=== PATIENT | male | born 1980 | race African-American/Black ===

== ENCOUNTER 2017-06-11 21:10 | Emergency (ER) | payer OTHER ==
--- NOTE | 2017-06-11 21:13 | EDM.PDOC ---
ED HPI GENERAL MEDICAL PROBLEM - General Stated Complaint: MEDICAL CLEARANCE Time Seen by Provider: 06/11/17 21:12 Source of Information: Reports: Patient History Limitations: Reports: No Limitations - History of Present Illness INITIAL COMMENTS - FREE TEXT/NARRATIVE: HISTORY AND PHYSICAL: History of present illness: Patient is a 37-year-old male who presents to the emergency room today with law enforcement for medical clearance. Patient was concerned that his blood pressure may be high and wanted to be evaluated. He states he has not taken his home medications for hypertension over the past week, due to noncompliance. He states he has no current symptoms or complaints. He denies any fever, chills, chest pain, shortness of breath or cough. He denies any headache, change in vision or weakness. Denies any abdominal pain, nausea, vomiting, diarrhea or constipation. Denies any alcohol or drug abuse. Review of systems: As per history of present illness and below otherwise all systems reviewed and negative. Past medical history: As per history of present illness and as reviewed below otherwise noncontributory. Surgical history: As per history of present illness and as reviewed below otherwise noncontributory. Social history: No reported history of drug or alcohol abuse. Family history: As per history of present illness and as reviewed below otherwise noncontributory. Physical exam: General: well-developed and well-nourished 37-year-old -[place] male. Alert and oriented. Nontoxic appearing and in no acute distress. HEENT: Atraumatic, normocephalic, pupils equal and reactive bilaterally, negative for conjunctival pallor or scleral icterus, mucous membranes moist, throat clear, neck supple, nontender, trachea midline. No drooling or trismus noted. No meningeal signs Lungs: Clear to auscultation, breath sounds equal bilaterally, chest nontender. Heart: S1S2, regular rate and rhythm without overt murmur Abdomen: Soft, nondistended, nontender. Negative for masses or hepatosplenomegaly. Negative for costovertebral tenderness. Pelvis: Stable nontender. Genitourinary: Deferred. Rectal: Deferred. Skin: Intact, warm, dry. No lesions or rashes noted. Extremities: Atraumatic, negative for cords or calf pain. Neurovascular unremarkable. Neuro: Awake, alert, oriented. Cranial nerves II through XII unremarkable. Cerebellum unremarkable. Motor and sensory unremarkable throughout. Exam nonfocal. Notes: Patient reports he has no other concerns other than wanting to have his blood pressure evaluated. Physical evaluation is within normal limits. Current blood pressure readings are within normal limits. Did discuss with patient that he should take his medications as prescribed. He does state he has medications available to him but just has chosen to not take them. Patient will be released into custody of law enforcement. Offers no other concerns or complaints at this time. Diagnostics: None Therapeutics: None Impression: Encounter for medical screening History of hypertension Medication non-compliance Plan: 1. Please take your already prescribed home medications for your blood pressure management 2. Today's blood pressure readings were within normal limits. 3. Follow-up with your primary care provider in the next week or sooner as needed. Return to the ED as needed and as discussed Definitive disposition and diagnosis as appropriate pending reevaluation and review of above. ED ROS GENERAL - Review of Systems Review Of Systems: ROS reveals no pertinent complaints other than HPI. ED EXAM, GENERAL - Physical Exam Exam: See Below (See dictation) Departure - Departure Time of Disposition: 21:21 Disposition: Home, Self-Care 01 Clinical Impression: Encounter for medical screening examination, History of hypertension, Noncompliance with medication regimen - Discharge Information Additional Instructions: The following information is given to patients seen in the emergency department who are being discharged to home. This information is to outline your options for follow-up care. We provide all patients seen in our emergency department with a follow-up referral. The need for follow-up, as well as the timing and circumstances, are variable depending upon the specifics of your emergency department visit. If you don't have a primary care physician on staff, we will provide you with a referral. We always advise you to contact your personal physician following an emergency department visit to inform them of the circumstance of the visit and for follow-up with them and/or the need for any referrals to a consulting specialist. The emergency department will also refer you to a specialist when appropriate. This referral assures that you have the opportunity for follow-up care with a specialist. All of these measure are taken in an effort to provide you with optimal care, which includes your follow-up. Under all circumstances we always encourage you to contact your private physician who remains a resource for coordinating your care. When calling for follow-up care, please make the office aware that this follow-up is from your recent emergency room visit. If for any reason you are refused follow-up, please contact the [facility] Emergency Department at and asked to speak to the emergency department charge nurse. [facility] [address] [place] [id number] 1. Please take your already prescribed home medications for your blood pressure management 2. Today's blood pressure readings were within normal limits. 3. Follow-up with your primary care provider in the next week or sooner as needed. Return to the ED as needed and as discussed
== END 2017-06-11 21:25 | disposition home or self-care (01) ==
LOC: MW.ED 21:10
DX: Z13.9 Encounter for screening, unspecified (principal); I10 Essential (primary) hypertension; Z91.14 Patient's other noncompliance with medication regimen
CPT/HCPCS: 99282